=== PATIENT | female | born 2000 | race African-American/Black ===

== ENCOUNTER 2019-10-13 17:16 | Emergency (ER) | payer SELFPAY ==
[~2019-10-13] VITALS: Ht 154.9 cm; Wt 54.4 kg
--- NOTE | 2019-10-13 17:51 | Emergency Room Report ---
History of Present Illness General Chief Complaint: Medical Clearance Source: Patient Present Illness HPI 19 YO female presents to the ED c/o nausea, decreased appetite, and a cough x 1 day. Pt. reports she is not sure if she is . Pt. denies fevers or chills. Onset of cough was after smoking marijuana. Pt. reports smoking daily. Pt. denies abdominal pain or tenderness. She denies vomiting. She denies significant changes in weight or night sweats. She denies being on control. Pt. denies CP or palpitations. Pt. denies hx of Asthma. Pt. denies open wounds or bleeding. She reports onset of nausea was 2 days ago. LMP was the last week of August. She denies ELIAS or dizziness. No other complaints at this time. 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 Patient History Past Medical History: see triage record Past Surgical History: none Pertinent Family History: none Now: No Reviewed Nursing Documentation: PMH: Agreed; PSxH: Agreed Nursing Documentation-PMH Past Medical History: No Stated History Review of Systems All Other Systems: negative except mentioned in HPI Physical Exam Vital Signs Date Time Temp Pulse Resp B/P (MAP) Pulse Ox O2 Delivery O2 Flow Rate FiO2 10/13/19 17:23 99.0 86 20 116/71 (86) 98 Room Air Sp02 EP Interpretation: reviewed, normal General Appearance: no apparent distress, alert, GCS 15, non-toxic Head: normocephalic, atraumatic Eyes: bilateral eye normal inspection, bilateral eye PERRL ENT: hearing grossly normal, normal voice Neck: full range of motion Respiratory: chest non-tender, lungs clear, normal breath sounds, no respiratory distress, no accessory muscle use, no wheezing, speaking full sentences Cardiovascular #1: regular rate, rhythm, no edema, normal capillary refill Cardiovascular #2: 2+ radial (R), 2+ radial (L) Gastrointestinal: normal bowel sounds, non tender, soft Genitourinary: normal inspection, no CVA tenderness Musculoskeletal: back normal, normal range of motion, gait/station normal, non- tender Neurologic: alert, motor strength/tone normal, oriented x3, sensory intact, responsive, speech normal Psychiatric: judgement/insight normal Skin: no rash, normal color Medical Decision Making PA Attestation Dr. Fisher is my supervising Physician whom patient management has been discussed with. Diagnostic Impression: Primary Impression: Medical clearance for incarceration Additional Impressions: Nausea Cough in adult ER Course 19 YO female presents to the ED c/o nausea, decreased appetite, and a cough x 1 day. Pt. reports she is not sure if she is . Pt. denies fevers or chills. Onset of cough was after smoking marijuana. Pt. reports smoking daily. Pt. denies abdominal pain or tenderness. She denies vomiting. She denies significant changes in weight or night sweats. She denies being on control. Pt. denies CP or palpitations. Pt. denies hx of Asthma. Pt. denies open wounds or bleeding. She reports onset of nausea was 2 days ago. LMP was the last week of August. She denies ELIAS or dizziness. No other complaints at this time. Ddx considered but are not limited to Head Trauma, VT, ACS, SI/HI, URI, SAH, Fractures, Dislocations, Tazer barbs, Abrasions ,, bronchospasm, PNA, Covid-19, bowel obstruction just to name a few. Vital signs: are WNL, pt. is afebrile H&PE are most consistent with: normal limited physical examination. ORDERS: -CXR: Unremarkable -Urine Hcg: Negative ED INTERVENTIONS: None required at this time. -I do not identify an emergent condition at this time. With current presentation , pt. is stable for close outpatient follow up and conservative treatment. D/ w pt. to return promptly to ED with worsening or new symptoms.- Pt. verbalizes' understanding and agreement with proposed treatment plan. DISCHARGE: At this time pt. is stable for d/c to law enforcement. Will provide printed patient care instructions, and any necessary prescriptions. Care plan and follow up instructions have been discussed with the patient prior to discharge. Labs Test 10/13/19 17:55 Urine HCG, Qualitative Negative (NEGATIVE) Chest X-Ray Diagnostic Results Chest X-Ray Diagnostic Results : Chest X-Ray Ordered: Yes # of Views/Limited/Complete: 1 View Indication: Other - cough EP Interpretation: Yes PA Xray: Interpretation reviewed, by supervising MD, and agrees with findings. Interpretation: no consolidation, no effusion, no pneumothorax, no acute cardiopulmonary disease Impression: No acute disease Electronically Signed by: Linda Isaac PA-C Last Vital Signs Date Time Temp Pulse Resp B/P (MAP) Pulse Ox O2 Delivery O2 Flow Rate FiO2 10/13/19 17:23 99.0 86 20 116/71 (86) 98 Room Air Disposition: LAW ENFORCEMENT IN CUST Condition: Stable Referrals: [facility] + [facility] Patient Instructions: Medical Screening Exam, Nausea, Adult, [id number] Additional Instructions: Take medications as directed. Follow up with a Primary Care Provider in 3-5 days, even if your symptoms have resolved. --Please review list of primary care clinics, if you do not already have a primary care provider Return sooner to ED if new symptoms occur, or current symptoms become worse. - Please note that this Emergency Department Report was dictated using [employer] technology software, occasionally this can lead to erroneous entry secondary to interpretation by the dictation equipment. Linda Isaac Oct 13, 2019 17:51
--- NOTE | 2019-10-13 18:00 | NUR ---
ED Nurse Note: Patient brought in by [facility] for medical clearnace. Patient c/o loss of appetite and nausea. Patient denies any N/V, fever or chills or cough. Patient found in room, sitting in chair, some dry cough and attempted to clear throat. Patient states she started having some cough since she arrived ER. Provided water. Patient awake, alert, oriented x 4. Regular, unlabored breathing noted. No facial grimacing or guarding noted.
--- NOTE | 2019-10-13 18:04 | Diagnostic Imaging Report ---
EXAM: XR Chest, 1 View CLINICAL HISTORY: PAIN TECHNIQUE: Frontal view of the chest. COMPARISON: No relevant prior studies available. FINDINGS: Lungs: Unremarkable. No consolidation. Pleural space: No pleural effusion. No pneumothorax. Heart: Unremarkable. No cardiomegaly. Bones/joints: Unremarkable. IMPRESSION: No acute cardiopulmonary abnormality.
[2019-10-13 18:42] VITALS: BP 110/68
--- NOTE | 2019-10-13 18:44 | NUR ---
ED Nurse Note: PATIENT IS BEING MEDICALLY CLEARED FOR DISCHARGE. PATIENT AWAKE, ALERT, ORIENTED X 4. REGULAR, UNLABORED BREATHING NOTED. D/C INSTRUCTION GIVEN. PATIENT IS LEAVING THE HOSPITAL ACCOMPAINED BY .
== END 2019-10-13 18:42 ==
LOC: EMR 18:00
DX: R11.0 Nausea (principal); R05 Cough; F17.200 Nicotine dependence, unspecified, uncomplicated
CPT/HCPCS: 71045; 81025; 99283